=== PATIENT | female | born 1965 | race Caucasian/White ===

== ENCOUNTER 2021-10-29 15:03 | Emergency (ER) | payer BC, OTHER ==
[~2021-10-29] VITALS: Ht 165.1 cm; Wt 65.8 kg
[2021-10-29 17:05] LABS: URINE BLOOD NEGATIVE (Negative); URINE CLARITY CLEAR; URINE COLOR YELLOW; URINE GLUCOSE-RANDOM NEGATIVE (Negative); URINE KETONES 1+ (Negative); URINE LEUKOCYTES-REFLEX NEGATIVE (Negative); URINE NITRITE-REFLEX NEGATIVE (Negative); URINE PROTEIN TRACE (Negative); URINE SPECIFIC GRAVITY 1.025 (1.005-1.030)
[2021-10-29 17:14] LABS: ICTOTEST (BILI CONFIRMATORY) Negative (Negative); URINE BILIRUBIN 1+ (Negative)
[2021-10-29 17:27] LABS: ABSOLUTE LYMPHOCYTES 0.8 thou/uL (0.8-5.3); ABSOLUTE MONOCYTES 0.3 thou/uL (0.0-1.2); ABSOLUTE NEUTROPHILS 2.5 thou/uL (1.6-8.1); BASOPHILS 0.5 %; HEMATOCRIT 40.9 % (37.0-47.0); HEMOGLOBIN 14.4 gm/dL (12.0-15.0); LYMPHOCYTES 21.8 %; MCH 30.5 pg (26.0-34.0); MCHC 35.3 g/dL (28.0-37.0); MCV 86.4 fL (80.0-100.0); MONOCYTES 8.7 %; MPV 7.5 fl. (7.2-11.1); NUCLEATED RBCS 0 /100WBC; PLATELET COUNT* 144 thou/uL (150-400); RBC 4.73 mil/uL (4.20-5.00); RDW-CV 11.8 % (10.5-14.5); WBC 3.6 thou/uL (4.0-11.0)
[2021-10-29 17:33] LABS: CALCIUM 8.6 mg/dL (8.5-10.1); POTASSIUM 4.2 mmol/L (3.5-5.1)
[2021-10-29 17:37] LABS: ALBUMIN 3.5 g/dL (3.4-5.0); CREATININE 0.8 mg/dL (0.6-1.3); TOTAL BILIRUBIN 0.5 mg/dL (<0.1-1.0); TOTAL PROTEIN 7.1 g/dL (6.4-8.2)
[2021-10-29 19:54] VITALS: BP 126/61
--- NOTE | 2021-10-30 09:23 | EKG ---
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 : 1965 Requested By: Farideh Samaniego Order Number: [id number] MD: Simon Gordillo Measurements Intervals Willis Rate: 94 P: 63 IA: 174 QRS: -70 QRSD: 98 T: 15 QT: 437 QTc: 547 Interpretive Statements Sinus rhythm Probable left atrial enlargement Left anterior fascicular block Borderline T abnormalities, anterior leads Prolonged QT interval No previous ECG available for comparison Electronically Signed On 10-30-2021 9:23:14 WORLD LANGUAGE TEACHER by Simon Gordillo [email or web address] <ELECTRONICALLY SIGNED> By: Simon Gordillo MD, [facility] 10/30/21 0923 1529 1529 Simon Gordillo MD, [facility] /EPI
== END 2021-10-29 19:54 | disposition left against medical advice (07) ==
LOC: M.ERS 15:03
PROVIDERS: Physician Assistant
DX: U07.1 COVID-19 (principal); R94.31 Abnormal electrocardiogram [ECG] [EKG]; R42 Dizziness and giddiness; R79.89 Other specified abnormal findings of blood chemistry; Z88.2 Allergy status to sulfonamides

== ENCOUNTER 2021-11-02 08:31 | Inpatient (IN) | payer BC ==
[~2021-11-02] VITALS: Ht 162.6 cm; Wt 65.8 kg
[2021-11-02 09:02] VITALS: BP 110/70
[2021-11-02 10:01] LABS: ABSOLUTE LYMPHOCYTES 0.9 thou/uL (0.8-5.3); ABSOLUTE MONOCYTES 0.5 thou/uL (0.0-1.2); ABSOLUTE NEUTROPHILS 4.3 thou/uL (1.6-8.1); BASOPHILS 0.4 %; EOSINOPHILS 0.4 %; HEMATOCRIT 40.6 % (37.0-47.0); LYMPHOCYTES 15.5 %; MCHC 34.4 g/dL (28.0-37.0); MCV 87.3 fL (80.0-100.0); MPV 7.1 fl. (7.2-11.1); NUCLEATED RBCS 0 /100WBC; PLATELET COUNT* 268 thou/uL (150-400); POLYS 74.7 %; RBC 4.65 mil/uL (4.20-5.00); RDW-CV 11.9 % (10.5-14.5); WBC 5.8 thou/uL (4.0-11.0)
[2021-11-02 10:16] LABS: CALCIUM 8.9 mg/dL (8.5-10.1); CREATININE 0.8 mg/dL (0.6-1.3); POTASSIUM 3.4 mmol/L (3.5-5.1)
[2021-11-02 10:27] LABS: ALBUMIN 3.4 g/dL (3.4-5.0); MAGNESIUM 2.1 mg/dL (1.8-2.4); TOTAL BILIRUBIN 0.6 mg/dL (<0.1-1.0); TOTAL PROTEIN 7.2 g/dL (6.4-8.2)
--- NOTE | 2021-11-02 10:27 | EKG ---
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: TDS : 1965 Requested By: Edgardo Solis Order Number: [id number] MD: Charly Rodriguez Measurements Intervals [place] Rate: 79 P: 52 LA: 182 QRS: -37 QRSD: 100 T: 50 QT: 376 QTc: 432 Interpretive Statements Sinus rhythm Left axis deviation Low voltage, precordial leads Abnormal R-wave progression, early transition Borderline T wave abnormalities Baseline wander in lead(s) V6 Compared to ECG 10/29/2021 15:29:38 Prolonged QT interval no longer present T-wave abnormality still present Electronically Signed On 11-02-2021 10:27:05 DEVELOPMENT TECHNICIAN by Charly Rodriguez [email or web address] <ELECTRONICALLY SIGNED> By: Charly Rodriguez MD, FACC 11/02/21 1027 Charly Rodriguez MD, FAC /EPI
[2021-11-02 19:13] VITALS: BP 110/70
[2021-11-02] MEDS ORDERED: POTASSIUM CITR10 ME1 PO (20:10)
[2021-11-02] MEDS ORDERED: VITAMIN D325 MC2 PO (20:10)
[2021-11-02] MEDS ORDERED: ASA81BEC PO (20:10)
[2021-11-02] MEDS ORDERED: ASCORBIC A500 MG/1 M SUBQ (20:10)
[2021-11-02] MEDS ORDERED: VITAMIN B-1100 M1 PO (20:10)
[2021-11-02] MEDS ORDERED: MELATONIN5 M1 PO (20:10)
--- NOTE | 2021-11-03 13:32 | CON ---
[address] [address] CONSULTATION Name: CHRISTIN GALEANA Room: [address] [place]#: [id number] Admission: 11/02/21 Attend Phys: Yoseph Anton Discharge: 11/02/21 Date of : 61 Report #: [id number] THIS REPORT FOR: cc: Michaela Doll MD, Gretchen MD Blick, David R. MD [facility] ~ cc: Michaela Doll MD DATE OF CONSULTATION: 11/02/2021 CARDIOLOGY CONSULTATION HISTORY OF PRESENT ILLNESS: The patient is a 56-year-old white female, who I was asked to see in the Emergency Room today after she complained of palpitations. The patient has no previous history of heart disease. She exercises on a regular basis. She notes that recently she was diagnosed with COVID-19. She then lost her sense of taste, smell, felt nauseated, headache, cough, fever, fatigue. She actually came to the Emergency Room a week ago here at [facility] and was noted to have an abnormal troponin. She apparently left AMA. She states that after she went home, her nausea and appetite improved. She is no longer having a headache. She has a mild cough, but no more fever. She now notes occasional episodes when her heart will flutter and beat fast. She felt somewhat lightheaded, but denied any syncope. Denies any chest pain, increased shortness of breath, peripheral edema. PAST MEDICAL HISTORY: She has gone through menopause. She has had a previous cholecystectomy, pelvic floor reconstruction, two knee surgeries. She has a history of hyperlipidemia. No diabetes. No hypertension. CURRENT MEDICATIONS: She is on no medications. ALLERGIES: SHE HAS A PREVIOUS ALLERGY TO SULFA DRUGS. FAMILY HISTORY: Negative for heart disease. SOCIAL HISTORY: She is . She and her live here in [place]. 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 No smoking. Rarely drinks alcohol. REVIEW OF SYSTEMS: No history of stroke, asthma, liver disease, kidney disease, cancer, psychiatric illness, chronic skin condition. PHYSICAL EXAMINATION: GENERAL: Revealed a middle-aged female who appeared in no distress. VITAL SIGNS: Show blood pressure 120/70, pulse is 90. She is afebrile. HEENT: She was anicteric. Conjunctivae pink. [place] [address] CONSULTATION Name: CHRISTIN GALEANA Room: [address]#: [id number] Admission: 11/02/21 Attend Phys: Yoseph Anton Discharge: 11/02/21 Date of : 61 Report #: [id number] NECK: Neck veins do not appear distended. No carotid bruits. CHEST: Clear to auscultation. HEART: Regular rate and rhythm without rub or murmur. ABDOMEN: Soft. EXTREMITIES: Had no edema. Posterior tibial pulses 2+ on the right. Left dorsalis pedis pulses 1+. SKIN: Cool and dry. NEUROLOGIC: Nonfocal. PSYCHIATRIC: Mood is appropriate. LABORATORY DATA: Her workup since she was admitted, she had an electrocardiogram that showed sinus rhythm, left axis, incomplete right bundle branch block, nonspecific T-wave changes. Her workup, she had a portable chest x-ray in the Emergency Room this morning that showed normal heart size, lung infiltrates without change since last week. Her lab work, potassium 3.4, creatinine 0.8. Liver function studies were normal. High sensitivity troponin, last week was 107, today it is 54. BNP 76. Hemoglobin 14.0. Her COVID antigen stat test today is negative. IMPRESSION AND RECOMMENDATIONS: 1. Borderline troponin. No evidence of acute myocardial infarction. I would consider an echocardiogram. 2. Recent diagnosis of COVID-19. 3. Palpitations. I would consider a youth nutritional monitor. 4. History of hyperlipidemia. 5. Findings of COVID-19 pneumonia. <ELECTRONICALLY SIGNED> By: Charly Rodriguez MD, FACC 11/03/21 1332 1602 1821Dvianey Rodriguez MD, FACC /nt
== END 2021-11-02 20:30 | disposition home or self-care (01) | DRG 310 ==
LOC: M.ERS 08:31 → M.TBA-ER 11:22
PROVIDERS: Emergency Medicine Emergency Medical Services; ADMIT Internal Medicine; ATTEND Internal Medicine
DX: I47.1 Supraventricular tachycardia (principal); Z88.2 Allergy status to sulfonamides; Z20.822 Contact with and (suspected) exposure to COVID-19